=== PATIENT | male | born 1995 | race Caucasian/White ===

== ENCOUNTER 2017-01-14 12:31 | Emergency (ER) | payer SELFPAY ==
[~2017-01-14] VITALS: Ht 167.6 cm; Wt 62.5 kg
[2017-01-14 12:34] VITALS: Ht 167.6 cm; Wt 62.5 kg
[2017-01-15] MEDS ORDERED: ACET325T33 PO (02:30)
== END 2017-01-14 15:06 | disposition left against medical advice (07) ==
LOC: FTE 12:31
DX: Z53.21 Procedure and treatment not carried out due to patient leaving prior to being seen by health care provider (principal)

== ENCOUNTER 2017-01-15 00:51 | Emergency (ER) | payer BC, OTHER ==
[~2017-01-15] VITALS: Ht 170.2 cm; Wt 65.0 kg
[2017-01-15 00:52] VITALS: Ht 170.2 cm; Wt 65.0 kg
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
[2017-01-15] MEDS ORDERED: ACETAMINOPHEN 325 MG TAB PO ONE (02:00)
--- NOTE | 2017-01-15 02:18 | RADRPT ---
PROCEDURE: XR Left Wrist. CLINICAL INDICATION: Trauma TECHNIQUE: 3 views of the left wrist were obtained. COMPARISON: No prior studies are available for comparison. FINDINGS: No fracture is seen. There is slight lateral subluxation of the base of the first metacarpal on the oblique view. On the lateral view, the base of the first metacarpal is not clearly articulating norm ally with the trapezium. This may simply be projectional. No other evidence for dislocation is seen. There is slight negative ulnar variance. IMPRESSION: Slight probable subluxation of the first metacarpal. A enoc dislocation is suspected clinically, CT could be performed. . RPTAT: [facility] Physician Isauro Date Time Electronically viewed and signed by Fatuma Serrato Physician on 01/15/2017 02:17 LE/
[2017-01-15] MEDS ORDERED: ACET325T33 PO (02:30)
== END 2017-01-15 03:18 | disposition home or self-care (01) ==
LOC: FTE 00:51
DX: S69.92XA Unspecified injury of left wrist, hand and finger(s), initial encounter (principal); F17.210 Nicotine dependence, cigarettes, uncomplicated; V00.131A Fall from skateboard, initial encounter; Y92.9 Unspecified place or not applicable
CPT/HCPCS: 29125; 73110; Z7502; Z7610

== ENCOUNTER 2017-01-18 01:49 | Emergency (ER) | payer BC ==
[~2017-01-18] VITALS: Ht 170.2 cm; Wt 61.5 kg
[~2017-01-18 01:49] MED LIST: ACET325T33 PO
[2017-01-18 02:01] VITALS: Ht 170.2 cm; Wt 61.5 kg
[2017-01-18] MEDS ORDERED: morphine 4 MG/ML VIAL IV STA (02:33)
[2017-01-18] MEDS ORDERED: SOD CHLORIDE 0.9% 500 ML IV STA (02:33)
[2017-01-18] MEDS ORDERED: ONDANSETRON 4 MG INJ IV STA (02:33)
[2017-01-18 04:08] LABS: BASOPHILS % 0.2 % (0.0-2.0); EOSINOPHILS # 0.3 10^3/ul (0.0-0.5); EOSINOPHILS % 2.6 % (0.0-7.0); HEMATOCRIT 41.9 % (42.0-52.0); HEMOGLOBIN 14.4 g/dl (14.0-18.0); LYMPHOCYTES # 3.3 10^3/ul (0.8-2.9); LYMPHOCYTES % 33.6 % (15.0-51.0); MEAN CORPUSCULAR HEMOGLOBIN 32.3 pg (29.0-33.0); MEAN CORPUSCULAR HGB CONC 34.4 g/dl (32.0-37.0); MEAN CORPUSCULAR VOLUME 93.9 fl (82.0-101.0); MEAN PLATELET VOLUME 9.4 fl (7.4-10.4); MONOCYTE # 0.7 10^3/ul (0.3-0.9); MONOCYTES % 6.9 % (0.0-11.0); NEUTROPHIL # 5.6 10^3/ul (1.6-7.5); NEUTROPHILS % 56.5 % (39.0-77.0); PLATELET COUNT 243 10^3/UL (140-415); RED BLOOD COUNT 4.46 10^6/ul (4.70-6.10); WHITE BLOOD COUNT 9.8 10^3/ul (4.8-10.8)
[2017-01-18 04:25] LABS: ALBUMIN 4.5 g/dl (3.3-4.9); ALBUMIN/GLOBULIN RATIO 1.66; BILIRUBIN,INDIRECT 0.5 mg/dl (0-1.1); BILIRUBIN,TOTAL 0.5 mg/dl (0.2-1.3); CALCIUM 8.9 mg/dl (8.4-10.2); CREATININE 0.7 mg/dl (0.61-1.24); POTASSIUM 3.4 mmol/L (3.5-5.1); TOTAL PROTEIN 7.2 g/dl (6.1-8.1)
--- NOTE | 2017-01-18 04:48 | RADRPT ---
PROCEDURE: CT ABDOMEN/PELVIS WITHOUT CONTRAST CLINICAL INDICATION: 21-year-old male with abdominal pain. TECHNIQUE: The study was performed utilizing a [employer] VCT 64-slice CT scanner. Direct axia l sections were obtained through the abdomen and pelvis without the use of intravenous contrast mate rial. Sagittal and coronal reformations were obtained. One or more of the following dose reduction t echniques were utilized: automated exposure control, adjustment of the mA and/or kV according to pat ient's size or use of iterative reconstruction technique. [facility] CTD/vol = 5.61 mGy; Total Exam DLP = 325.34 mGy-cm. COMPARISON: None. FINDINGS: The lung bases are unremarkable. There is no evidence for significant pleural effusion. The liver has a normal size and contour without focal areas of abnormal density. No intrahepatic nor extrahepa tic biliary ductal dilatation is seen. The gallbladder demonstrates no wall thickening nor perichole cystic fluid. No biliary stones are evident. The pancreas is without areas of abnormal attenuation. The spleen is identified and has a normal size without abnormal density. The adrenal glands are unr emarkable. The kidneys are without abnormal density. No hydroureteronephrosis nor nephroureterolithi asis is evident. The urinary bladder contains urine. There are mildly dilated fluid-filled loops of small bowel without transition point suggestive of an enteritis. There is mild retained stool identi fied within the colon. The appendix is visualized and is without abnormal thickening or surrounding inflammatory reaction. There is no significant free fluid. The aortoiliac vessels are without aneurysmal dilatation. The osseous structures are intact. IMPRESSION: 1. No CT evidence for obstructive uropathy or renal calculi. 2. Mild fluid identified within the small bowel without obstruction suggestive of an enteritis. Cli nical correlation is necessary. 3. No CT evidence for appendicitis. 4. Mild retained stool. .Darrion Pitt MD, Date Time Electronically viewed and signed by .Darrion Pitt MD, MD on 01/18/2017 04:48 .M/
--- NOTE | 2017-01-18 04:50 | RADRPT ---
PROCEDURE: LEFT RIB - 2 VIEWS CLINICAL INDICATION: 21-year-old male with left-sided chest pain. TECHNIQUE: Multiple oblique views of the left ribs were obtained. The images were reviewed on a [employer] workstation. COMPARISON: None. FINDINGS: There is no evidence for a left rib fracture. The underlying lung parenchyma is intact without evide nce for pneumothorax. IMPRESSION: No radiographic evidence for an acute left rib fracture. .Darrion Pitt MD, MD Date Time Electronically viewed and signed by .Darrion Pitt MD, on 01/18/2017 04:50 .M/
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
[2017-01-18 05:33] VITALS: BP 112/73; PULSE 77; RESP 17
[2017-01-18 06:08] LABS: ADD UMIC NO; UR ASCORBIC ACID NEGATIVE (NEGATIVE); UR BILIRUBIN (Dip) NEGATIVE (NEGATIVE); UR BLOOD (Dip) NEGATIVE (NEGATIVE); UR CLARITY CLEAR (CLEAR); UR COLOR YELLOW (YELLOW); UR GLUCOSE (Dip) NEGATIVE (NEGATIVE); UR KETONES (Dip) NEGATIVE (NEGATIVE); UR LEUKOCYTE ESTERASE (Dip) NEGATIVE Leu/ul (NEGATIVE); UR NITRITE (Dip) NEGATIVE (NEGATIVE); UR SPECIFIC GRAVITY (Dip) 1.009 (1.003-1.030); UR TOTAL PROTEIN (Dip) NEGATIVE (NEGATIVE); UR UROBILINOGEN (Dip) 1+ mg/dL (NEGATIVE)
== END 2017-01-18 05:34 | disposition home or self-care (01) ==
LOC: E/R 01:49
DX: S20.212A Contusion of left front wall of thorax, initial encounter (principal); F17.210 Nicotine dependence, cigarettes, uncomplicated; V28.4XXA Motorcycle driver injured in noncollision transport accident in traffic accident, initial encounter
CPT/HCPCS: 36415; 71100; 74176; 80053; 81003; 83690; 85025; 96374; 96375; J2270; J2405; J7040; Z7502

== ENCOUNTER 2018-12-17 20:34 | Emergency (ER) | payer SELFPAY ==
[~2018-12-17] VITALS: Ht 167.6 cm; Wt 71.6 kg
[~2018-12-17 20:34] MED LIST changes: +HYDR-4011 PO; +IBUP800T48 PO
[2018-12-17 20:39] VITALS: Ht 167.6 cm; Wt 71.6 kg
[2018-12-17] MEDS ORDERED: KETOROLAC 30 MG INJ IM STA (21:11)
[2018-12-17] MEDS ORDERED: HYDROCODONE/APAP (5/325) TAB PO ONE (21:30)
[2018-12-17 23:55] VITALS: BP 128/77; PULSE 73; RESP 20
== END 2018-12-17 23:55 | disposition home or self-care (01) ==
LOC: FTE 20:34
DX: S62.002A Unspecified fracture of navicular [scaphoid] bone of left wrist, initial encounter for closed fracture (principal); F17.210 Nicotine dependence, cigarettes, uncomplicated; V00.131A Fall from skateboard, initial encounter; Y92.9 Unspecified place or not applicable
CPT/HCPCS: 29125; 73110; 96372; 99284; J1885